=== PATIENT | female | born 1975 | race Caucasian/White ===

== ENCOUNTER 2023-09-07 16:02 | Emergency (ER) | payer BC, SELFPAY ==
[2023-09-07 16:06] VITALS: BP 184/105; PULSE 95; RESP 18; TEMP 37.1; O2SAT 99; BMI 23.1
--- NOTE | 2023-09-07 16:13 | DI.RAD.S_ITS ---
PROCEDURE: XR CHEST 1V INDICATIONS: chest pain TECHNIQUE: One view of the chest was acquired. COMPARISON: None. FINDINGS: Surgical changes and devices: None. Lungs and pleura: Lungs are clear. No pleural effusions or pneumothorax. Mediastinum: Mediastinal contours appear normal. Heart size is normal. Bones and chest wall: No suspicious bony lesions. Overlying soft tissues appear unremarkable. IMPRESSION: No acute cardiopulmonary findings Approved by: Paulo Yang M.D. on 09/07/2023 at 16:09
[2023-09-07 17:05] LABS: INR 0.9 (0.9-1.3); Prothrombin Time 10.8 SECONDS (9.4-12.5)
[2023-09-07 17:07] LABS: Add Manual Diff / Slide Review NO; Basophils Absolute Auto 100 /uL (0-100); Basophils Percent Auto 1.1 % (0-2); Eosinophils Absolute Auto 100 /uL (0-450); Eosinophils Percent Auto 1.4 % (2-4); Hematocrit 30.9 % (36-46); Hemoglobin 9.3 g/dL (12.0-16.0); Lymphocytes Absolute Auto 1500 /uL (1100-4500); Lymphocytes Percent Auto 15.7 % (25-40); Mean Corpuscular HGB Conc 30.2 % (30-36); Mean Corpuscular Hemoglobin 18.7 PG (26-34); Monocytes Absolute Auto 800 /uL (0-900); Monocytes Percent Auto 8.3 % (3-14); Neutrophils Absolute Auto 7000 /uL (1500-7000); Neutrophils Percent Auto 73.5 % (50-75); PTT Partial Thromboplastin Tim 33 SECONDS (25.1-36.5); Platelet Count 493 X10^3/uL (150-400); Red Blood Cell Count 4.99 X10^6/uL (4.0-5.2); Red Cell Distribution Width 18.9 % (11.6-14.8); White Blood Cell Count 9.6 X10^3/uL (4.5-11.0)
[2023-09-07 17:11] LABS: Alanine Aminotransferase 11 IU/L (<35); Albumin 4.4 g/dL (3.5-5.0); Albumin Globulin Ratio 1.3 (1.0-2.8); Alkaline Phosphatase 60 U/L (38-126); Aspartate Aminotransferase 15 IU/L (14-36); BUN Creatinine Ratio 34.8 (6-22); Bilirubin Total 0.4 mg/dL (0.2-1.3); Blood Urea Nitrogen 24 mg/dL (7-17); Calcium 9.4 mg/dL (8.4-10.2); Carbon Dioxide 22 mmol/L (22-32); Chloride 110 mmol/L (98-107); Creatine Kinase 32 U/L (30-135); Estimated Glomerular Filt Rate > 60 mL/min (>60); Globulin 3.3 g/dL (1.7-4.1); Glucose 103 mg/dL (70-100); HEMOLYSIS < 15 (0-50); Lipase 70 U/L (23-300); Magnesium 2.2 mg/dL (1.6-2.3); Potassium 3.4 mmol/L (3.4-5.1); Sodium 140 mmol/L (137-145); Total Protein 7.7 g/dL (6.3-8.2)
[2023-09-07 17:21] LABS: Microcytosis 2+
[2023-09-07 17:22] LABS: Troponin I < 0.012 ng/mL (0.01-0.034)
[2023-09-07 17:24] VITALS: BP 144/84; PULSE 73; O2SAT 97
[2023-09-07 17:30] VITALS: BP 147/95; PULSE 76; RESP 14; O2SAT 95
[2023-09-07 18:00] VITALS: BP 158/99; PULSE 73; RESP 30; O2SAT 97
--- NOTE | 2023-09-07 18:12 | ED.CHESTPAIN ---
HPI - Chest Pain General Chief Complaint: Chest Pain Stated Complaint: chest pain, headache Time Seen by Provider: 09/07/23 17:48 Source: patient Mode of arrival: Ambulatory Limitations: no limitations History of Present Illness HPI narrative: 47-year-old female. Has not seen a primary care doctor in more than 10 years. Is here for evaluation episodes that have happened over the past couple weeks to include headaches, palpitations, what was initially described as chest discomfort however patient states is more feel like her heart is beating fast and skipping beats. She was not taking her blood pressure at home. No abdominal pain or nausea vomiting. She currently is asymptomatic at the time of my exam. No lower extremity swelling. No shortness of breath. He does not have a primary care doctor. Review of Systems Constitutional Constitutional: Reports system reviewed and no additional complaints, except as documented Cardiovascular Cardiovascular: Reports system reviewed and no additional complaints, except as documented Respiratory Respiratory: Reports system reviewed and no additional complaints, except as documented Musculoskeletal Musculoskeletal: Reports system reviewed and no additional complaints, except as documented Integumentary/Breasts Skin/Breast: Reports system reviewed and no additional complaints, except as documented Neurologic Neurologic: Reports system reviewed and no additional complaints, except as documented Patient History alcohol intake frequency: other Substance Use Type: does not use Exam Initial Vital Signs Initial Vital Signs: Vital Signs Temperature 98.7 F 09/07/23 16:06 Pulse Rate 95 H 09/07/23 16:06 Respiratory Rate 18 09/07/23 16:06 Blood Pressure 184/105 H 09/07/23 16:06 Pulse Oximetry 99 09/07/23 16:06 Oxygen Delivery Method Room Air 09/07/23 16:06 Const General: cooperative, comfortable and No ill appearing [facility] Head: normal to inspection Resp Effort & Inspection: normal respiratory effort Auscultation: clear to auscultation bilaterally Cardio Rate: regular rate Skin General: no rashes or lesions noted Neuro General: patient alert, patient awake, patient oriented x3 and moves all extremities Extrem General: capillary refill normal Course Orders Ordered: ED Orders 09/07/23 16:13 XR chest 1V Stat EKG-12 Lead Stat 09/07/23 16:48 Complete Blood Count AUTO DIFF Stat Comprehensive Metabolic Panel Stat Lipase Stat Magnesium Stat PTT Partial Thromboplastin Thaddeus Stat Prothrombin Time INR Stat Troponin & CK Cardiac Panel Stat Discontinued Medications Aspirin (Aspirin 81 Mg Chew Tab) 324 mg PO NOW ONE Stop: 09/07/23 16:14 Last Admin: 09/07/23 18:04 Dose: Not Given Documented By: RLS Vital Signs Vital signs: Vital Signs - 8 hr 09/07/23 17:24 09/07/23 17:24 09/07/23 17:30 Pulse Rate 73 Respiratory Rate Blood Pressure 144/84 H 147/95 H Pulse Oximetry 97 Oxygen Delivery Method Room Air 09/07/23 17:30 09/07/23 18:00 09/07/23 18:00 Pulse Rate 76 73 Respiratory Rate 14 30 H Blood Pressure 158/99 H Pulse Oximetry 95 97 Oxygen Delivery Method MDM - Chest Pain Lab Data Attestation: I reviewed the patient's lab results. 09/07/23 16:48 09/07/23 16:48 Labs: Lab Results 09/07/23 Range/Units 16:48 WBC 9.6 (4.5-11.0) X10^3/uL RBC 4.99 (4.0-5.2) X10^6/uL Hgb 9.3 L (12.0-16.0) g/dL Hct 30.9 L (36-46) % MCV 62.0 L (80-100) fL MCH 18.7 L (26-34) PG MCHC 30.2 (30-36) % RDW 18.9 H (11.6-14.8) % Plt Count 493 H (150-400) X10^3/uL Neut % (Auto) 73.5 (50-75) % Lymph % (Auto) 15.7 L (25-40) % Greer % (Auto) 8.3 (3-14) % Eos % (Auto) 1.4 L (2-4) % Baso % (Auto) 1.1 (0-2) % Neut # (Auto) 7000 (0396-9207) /uL Lymph # (Auto) 1500 (5579-1124) /uL Greer # (Auto) 800 (0-900) /uL Eos # (Auto) 100 (0-450) /uL Baso # (Auto) 100 (0-100) /uL RBC Morphology See below Microcytosis 2+ H PT 10.8 (9.4-12.5) SECONDS INR 0.9 (0.9-1.3) APTT 33 (25.1-36.5) SECONDS Sodium 140 (137-145) mmol/L Potassium 3.4 (3.4-5.1) mmol/L Chloride 110 H (98-107) mmol/L Carbon Dioxide 22 (22-32) mmol/L BUN 24 H (7-17) mg/dL Creatinine 0.69 (0.52-1.04) mg/dL Estimated GFR > 60 (>60) mL/min BUN/Creatinine Ratio 34.8 H (6-22) Glucose 103 H (70-100) mg/dL Calcium 9.4 (8.4-10.2) mg/dL Magnesium 2.2 (1.6-2.3) mg/dL Total Bilirubin 0.4 (0.2-1.3) mg/dL AST 15 (14-36) IU/L ALT 11 (<35) IU/L Alkaline Phosphatase 60 (38-126) U/L Total Creatine Kinase 32 (30-135) U/L Troponin I < 0.012 (0.01-0.034) ng/mL Total Protein 7.7 (6.3-8.2) g/dL Albumin 4.4 (3.5-5.0) g/dL Globulin 3.3 (1.7-4.1) g/dL Albumin/Globulin Ratio 1.3 (1.0-2.8) Lipase 70 (23-300) U/L Imaging Data Chest x-ray: Radiologist's Impression: PROCEDURE: XR CHEST 1V INDICATIONS: chest pain TECHNIQUE: One view of the chest was acquired. COMPARISON: None. FINDINGS: Surgical changes and devices: None. Lungs and pleura: Lungs are clear. No pleural effusions or pneumothorax. Mediastinum: Mediastinal contours appear normal. Heart size is normal. Bones and chest wall: No suspicious bony lesions. Overlying soft tissues appear unremarkable. IMPRESSION: No acute cardiopulmonary findings ECG Data Attestation: I personally reviewed and interpreted this ECG as follows: Interpretation: Sinus rhythm Ventricular rate 96 Normal [place] Normal QRS Nonspecific ST T wave changes MDM Narrative Medical decision making narrative: Patient has had symptoms for the past 3 weeks. She was currently asymptomatic. Nonspecific changes on the EKG. She was not on any blood pressure medications. We discussed her blood pressure. Discussed how she should be taking this at home so that we know where she is at baseline before we start her on any medications. Advised that she contact her primary doctor for follow-up. She was given a phone number to discuss follow-up. It appears that the headache and the palpitations do seem to occur together. She has had no ectopy on her monitor here today. She may need a Holter monitor to further evaluate as well. Troponin is negative. Chest x-ray is unremarkable. Will discharge patient home with strict return precautions. She expressed understanding and agreement with plan. Discharge Plan Departure Patient Disposition: Home Clinical Impression: Palpitations, Hypertension, Headache Instructions: High Blood Pressure, DI for Palpitations Activity Restrictions/Additional Instructions: I recommend that you contact [phone] to help he was establish a primary care doctor. This is going to be important for follow-up of your symptoms that you came with today. Also recommend that you take your blood pressure at home like we discussed. Return to the emergency department for new symptoms. Stand Alone Forms: Patient Portal/API
== END 2023-09-07 18:33 | disposition home or self-care (01) ==
PROVIDERS: Emergency Medicine; Emergency Provider Emergency Medicine
DX: R00.2 Palpitations (principal); I10 Essential (primary) hypertension; R51.9 Headache, unspecified
CPT/HCPCS: 36415; 71045; 80053; 82550; 83690; 83735; 84484; 85025; 85610; 85730; 93005; 99284

== ENCOUNTER → 2023-10-14 15:57 | Outpatient (CLI) | payer BC, SELFPAY ==
--- NOTE | 2023-10-14 15:58 | DI.MG.S_ITS ---
BILATERAL DIGITAL SCREENING MAMMOGRAM 3D/2D WITH CAD: 10/14/2023 CLINICAL: Routine screening. Baseline exam. Family history. No prior exams were available for comparison. Both breasts are extremely dense, which lowers the sensitivity of mammography (category d />75% glandular tissue). Current study was also evaluated with a Computer Aided Detection (CAD) system. There are multiple presumed benign oval circumscrbed masses in both breasts, which may be cysts or fibroadenomas. No significant masses, calcifications, or other findings are seen in either breast. IMPRESSION: BENIGN There is no mammographic evidence of malignancy. A 1 year screening mammogram is recommended. There are multiple presumed benign oval circumscrbed masses in both breasts, which may be cysts or fibroadenomas. Based on the Tyrer Cuzick model (a risk assessment model) the patient's lifetime risk is 12.4% and her 10 year risk is 2.5%. According to the ACR, ACS, and NCCN guidelines, an annual breast MRI exam along with mammogram is recommended if the patient's lifetime risk is 20% or greater. This exam was interpreted at Station ID: [id number]. NOTE: For mammograms, a report in lay terms will be sent to the patient. Approximately 15% of breast malignancies will not be visualized mammographically. In the management of a palpable breast mass, a negative mammogram must not discourage biopsy of a clinically suspicious lesion. Electronically Signed By: Noah Hanson M.D. lc/:10/14/2023 16:56:34 letter sent: Normal Exam ACR BI-RADS Category 2: Benign Finding(s) 3342F
== END ==
PROVIDERS: PCP Family Medicine; Referring Provider Family Medicine; Visit Provider Family Medicine
DX: Z12.31 Encounter for screening mammogram for malignant neoplasm of breast (principal); N63.20 Unspecified lump in the left breast, unspecified quadrant; N63.10 Unspecified lump in the right breast, unspecified quadrant; Z80.3 Family history of malignant neoplasm of breast
CPT/HCPCS: 77063; 77067

== ENCOUNTER → 2024-01-14 08:13 | Outpatient (CLI) | payer BC, SELFPAY ==
[2024-01-14 10:15] LABS: Alanine Aminotransferase 15 IU/L (<35); Albumin Globulin Ratio 1.5 (1.0-2.8); Alkaline Phosphatase 76 U/L (38-126); Aspartate Aminotransferase 17 IU/L (14-36); BUN Creatinine Ratio 38.2 (6-22); Bilirubin Total 0.4 mg/dL (0.2-1.3); Blood Urea Nitrogen 26 mg/dL (7-17); Calcium 9.5 mg/dL (8.4-10.2); Carbon Dioxide 22 mmol/L (22-32); Chloride 112 mmol/L (98-107); Estimated Glomerular Filt Rate > 60 mL/min (>60); Globulin 2.7 g/dL (1.7-4.1); Glucose 99 mg/dL (70-100); HEMOLYSIS < 15 (0-50); Potassium 4.2 mmol/L (3.4-5.1); Sodium 142 mmol/L (137-145); Total Protein 6.7 g/dL (6.3-8.2)
== END ==
PROVIDERS: PCP Family Medicine; Referring Provider Family Medicine; Visit Provider Family Medicine
DX: R89.9 Unspecified abnormal finding in specimens from other organs, systems and tissues (principal)
CPT/HCPCS: 36415; 80053

== ENCOUNTER → 2025-01-18 10:06 | Outpatient (CLI) | payer BC, SELFPAY ==
[2025-01-18 10:35] LABS: Add Manual Diff / Slide Review NO; Hematocrit 31.6 % (36-46); Hemoglobin 9.8 g/dL (12.0-16.0); Lymphocytes Absolute Auto 1300 /uL (1100-4500); Mean Corpuscular HGB Conc 31.0 % (30-36); Mean Corpuscular Hemoglobin 20.2 PG (26-34); Mean Corpuscular Volume 65.2 fL (80-100); Platelet Count 530 X10^3/uL (150-400)
[2025-01-18 11:12] LABS: Alanine Aminotransferase 23 IU/L (<35); Albumin 4.3 g/dL (3.5-5.0); Albumin Globulin Ratio 1.4 (1.0-2.8); Alkaline Phosphatase 71 U/L (38-126); Blood Urea Nitrogen 28 mg/dL (7-17); Calcium 9.8 mg/dL (8.4-10.2); Carbon Dioxide 27 mmol/L (22-32); Chloride 104 mmol/L (98-107); Cholesterol 185 mg/dL (140-199); Estimated Glomerular Filt Rate > 60 mL/min (>60); Globulin 3.1 g/dL (1.7-4.1); Glucose 99 mg/dL (70-99); HEMOLYSIS < 15 (0-50); Potassium 3.4 mmol/L (3.4-5.1); Sodium 140 mmol/L (137-145); Total Protein 7.4 g/dL (6.3-8.2); Triglycerides 166 mg/dL (35-150)
[2025-01-18 11:29] LABS: TSH w/ Reflex to FT4 0.69 uIU/mL (0.47-4.68)
[2025-01-18 11:30] LABS: Hypochromasia 1+; Poikilocytosis 1+
[2025-01-18 11:31] LABS: Microcytosis 2+; Ovalocytes 1+
[2025-01-18 11:33] LABS: Anisocytosis 2+
[2025-01-18 17:49] LABS: HDL Cholesterol 30 mg/dL (40-60)
== END ==
LOC: LAB 10:07
PROVIDERS: PCP Family Medicine; Referring Provider Family Medicine; Visit Provider Family Medicine
DX: Z01.419 Encounter for gynecological examination (general) (routine) without abnormal findings (principal); I10 Essential (primary) hypertension
CPT/HCPCS: 36415; 80053; 80061; 84443; 85025

== ENCOUNTER → 2025-02-23 12:39 | Outpatient (CLI) | payer BC, SELFPAY ==
[2025-02-23 13:08] LABS: Add Manual Diff / Slide Review NO; Hematocrit 28.7 % (36-46); Hemoglobin 9.1 g/dL (12.0-16.0); Lymphocytes Absolute Auto 1400 /uL (1100-4500); Mean Corpuscular HGB Conc 31.6 % (30-36); Mean Corpuscular Hemoglobin 20.2 PG (26-34); Mean Corpuscular Volume 63.8 fL (80-100); Platelet Count 487 X10^3/uL (150-400)
[2025-02-23 13:11] LABS: Reticulocyte Count, Percent 1.3 % (1.1-2.6)
[2025-02-23 13:17] LABS: HEMOLYSIS < 15 (0-50)
[2025-02-23 13:24] LABS: Anisocytosis 1+; Poikilocytosis 2+
[2025-02-23 13:34] LABS: Total Iron Binding Capacity 522 ug/dL (265-497); Transferrin 433 mg/dL (206-381)
[2025-02-23 14:12] LABS: Vitamin B12 748 pg/mL (239-931)
== END ==
PROVIDERS: PCP Family Medicine; Referring Provider Family Medicine; Visit Provider Family Medicine
DX: D50.8 Other iron deficiency anemias (principal)
CPT/HCPCS: 36415; 82607; 83540; 83550; 85025; 85045

== ENCOUNTER → 2025-03-23 10:24 | Outpatient (CLI) | payer BC, SELFPAY ==
--- NOTE | 2025-03-23 10:26 | DI.MG.S_ITS ---
MM screening mammo BI: 03/23/2025. BI-RADS: 1 CLINICAL: 49-year old female for bilateral screening mammogram. Tyrer-Cuzick lifetime risk of 23.7%. Current reported family history of breast cancer: maternal grandmother and mother. PRIOR EXAMS 10/14/2023. MAMMOGRAPHY TECHNIQUE: 2D and 3D (tomosynthesis) digital mammographic views obtained, with additional images as needed for full coverage. Current study was also evaluated with a Computer Aided Detection (CAD) system. DENSITY D. The breasts are extremely dense, which lowers the sensitivity of mammography. MAMMOGRAPHY FINDINGS Bilateral: No suspicious mass, asymmetry, microcalcification, or other abnormality seen. IMPRESSION: * No evidence of malignancy. RECOMMENDATIONS Bilateral * According to the Tyrer-Cuzick Risk Assessment Model, based on the information provided your patient has a greater than 20% lifetime risk for developing breast cancer. Consider supplemental screening with breast MRI and participation in a high risk screening program. * Annual screening mammography. OVERALL ASSESSMENT CATEGORY BI-RADS-1: Negative. The [employer] recommends annual screening mammography beginning at age 40 for women with average risk of breast cancer. ELECTRONICALLY SIGNED: Otilia Blevins M.D. on 03/27/2025 at 10:55:04 PM PT Interpreting Station ID: [id number]
== END ==
PROVIDERS: PCP Family Medicine; Referring Provider Family Medicine; Visit Provider Family Medicine
DX: Z12.31 Encounter for screening mammogram for malignant neoplasm of breast (principal); R92.333 Mammographic heterogeneous density, bilateral breasts; Z80.3 Family history of malignant neoplasm of breast
CPT/HCPCS: 77063; 77067

== ENCOUNTER → 2025-05-18 11:15 | Outpatient (CLI) | payer BC, SELFPAY ==
[2025-05-18 11:57] LABS: Add Manual Diff / Slide Review NO; Hematocrit 41.9 % (36-46); Hemoglobin 13.9 g/dL (12.0-16.0); Lymphocytes Absolute Auto 1600 /uL (1100-4500); Mean Corpuscular HGB Conc 33.1 % (30-36); Mean Corpuscular Hemoglobin 26.3 PG (26-34); Mean Corpuscular Volume 79.4 fL (80-100); Platelet Count 404 X10^3/uL (150-400)
[2025-05-18 12:23] LABS: Anisocytosis 4+
== END ==
PROVIDERS: PCP Family Medicine; Referring Provider Family Medicine; Visit Provider Family Medicine
DX: D50.8 Other iron deficiency anemias (principal)
CPT/HCPCS: 36415; 85025